=== PATIENT | male | born 1980 | race Caucasian/White ===

== ENCOUNTER 2017-05-08 17:15 | Emergency (ER) | payer MEDICARE, MEDICAID ==
[2017-05-08 18:42] VITALS: RESP 20
[2017-05-08 18:46] VITALS: BP 177/108; PULSE 108; TEMP 98.1; O2SAT 98
== END 2017-05-08 20:32 | disposition home or self-care (01) | DRG 886 ==
LOC: ED 17:15
DX: F91.3 Oppositional defiant disorder (principal)
CPT/HCPCS: 99283

== ENCOUNTER 2017-05-13 18:04 | Emergency (ER) | payer MEDICARE, MEDICAID ==
[2017-05-13 18:15] VITALS: RESP 18
[2017-05-13 18:51] LABS: BASOPHILS % (AUTO) 1 % (0-3); EOSINOPHILS % (AUTO) 1 % (0-9); HEMATOCRIT 43 % (39-53); MEAN CORPUSCULAR HGB CONC 35.3 gm/dl (32.0-36.0); MEAN CORPUSCULAR VOLUME 86 fL (80-100); MONOCYTES % (AUTO) 6.4 % (0-12); NEUTROPHILS % (AUTO) 78.1 % (37-80)
[2017-05-13 18:52] VITALS: BP 142/85; PULSE 127; O2SAT 97
[2017-05-13 19:14] LABS: ALBUMIN 3.9 gm/dl (3.4-5.0); ALT 58 IU/L (14-63); GLOM FILT RATE 84 mL/min (>60); POTASSIUM 3.6 mMol/L (3.5-5.1); SODIUM 140 mMol/L (136-145); THYROID STIMULATING HORMONE 2.373 uIU/ml (0.358-3.740)
== END 2017-05-13 20:10 | disposition home or self-care (01) | DRG 886 ==
LOC: ED 18:04
DX: F91.8 Other conduct disorders (principal)
CPT/HCPCS: 36415; 80053; 80307; 84443; 85025; 99282; 99283; 99284

== ENCOUNTER 2017-05-13 22:33 | Emergency (ER) | payer MEDICARE, MEDICAID ==
[2017-05-13 22:50] VITALS: RESP 20; TEMP 98; O2SAT 98
[2017-05-13 23:31] VITALS: BP 121/74; PULSE 121
== END 2017-05-13 23:35 | disposition home or self-care (01) | DRG 204 ==
LOC: ED 22:33
DX: R91.8 Other nonspecific abnormal finding of lung field (principal)
CPT/HCPCS: 99282

== ENCOUNTER 2018-04-29 09:47 | Day surgery (SDC) | payer MEDICARE, MEDICAID ==
[2018-04-29] MEDS ORDERED: PROPOFOL 500 MG/50 ML EMU IV ONE ×2 (11:51)
[2018-04-29] MEDS ORDERED: LIDOCAINE HCL 1% MPF 30 SOL ONE (11:51)
[2018-04-29 12:14] VITALS: TEMP 97.2
[2018-04-29 12:36] VITALS: RESP 20
[2018-04-29 12:52] VITALS: BP 146/90; PULSE 78; O2SAT 97
== END 2018-04-29 12:57 | disposition home or self-care (01) | DRG 392 ==
LOC: SURG 09:47
PROVIDERS: ATTEND Internal Medicine Gastroenterology
DX: R19.7 Diarrhea, unspecified (principal); Q43.8 Other specified congenital malformations of intestine; R15.9 Full incontinence of feces; K64.8 Other hemorrhoids
CPT/HCPCS: J2001; J2704